=== PATIENT | female | born 1985 ===

== ENCOUNTER 2017-10-08 14:38 | Outpatient (CLI) | payer OTHER ==
[~2017-10-08] VITALS: Ht 157.5 cm; Wt 130.2 kg
== END 2017-10-08 15:00 | disposition home or self-care (01) ==
LOC: OFIC 805 14:38
DX: K21.9 Gastro-esophageal reflux disease without esophagitis (principal); R22.1 Localized swelling, mass and lump, neck; K14.8 Other diseases of tongue

== ENCOUNTER 2017-12-16 08:37 | Outpatient (CLI) | payer OTHER ==
[~2017-12-16] VITALS: Ht 152.4 cm; Wt 130.2 kg
== END 2017-12-16 09:00 | disposition home or self-care (01) ==
LOC: OFIC 805 08:37
DX: R22.1 Localized swelling, mass and lump, neck (principal)

== ENCOUNTER 2022-01-01 10:49 | Outpatient (CLI) | payer OTHER | END 2022-01-01 10:53 | disposition home or self-care (01) | LOC: SONOGRAMA 10:49 | PROVIDERS: ATTEND Pathology Anatomic Pathology & Clinical Pathology | DX: E04.2 Nontoxic multinodular goiter (principal) ==